=== PATIENT | male | born 1970 | race Caucasian/White ===

== ENCOUNTER 2018-11-07 14:41 | Inpatient (IN) | payer OTHER | END 2018-11-10 09:19 | disposition home or self-care (01) | LOC: YASAS 14:41 → Y3N 18:24 ==

== ENCOUNTER 2018-11-16 12:49 | Inpatient (IN) | payer OTHER ==
[2018-11-16 13:52] VITALS: BMI 26.6
--- NOTE | 2018-11-16 14:37 | HP ---
COWS - Scale Resting Pulse: 0= [place] 80 or Below Sweatin= Chills/Flushing Restless Observation: 1= Difficult to Sit Still Pupil Size: 0= Normal to Room Light Bone or Joint Aches: 1= Mild Discomfort Runny Nose/ Eye Tearin= Nasal Congestion GI Upset > 30mins: 2= Nausea/Diarrhea Tremor Observation: 4= Gross Tremor/Twitching Yawning Observation: 1= 1-2x During Session Anxiety or Irritability: 1=Feels Anxious/Irritable Goose Flesh Skin: 0=Smooth Skin COWS Score: 12 CIWA Score Nausea/Vomitin-Mild Nausea/No Vomiting Muscle Tremors: 3 Anxiety: 3 Agitation: 2 Paroxysmal Sweats: 1-Minimal Palms Moist Orientation: 0-Oriented Tacttile Disturbances: 1-Very Mild Itch/Numbness Auditory Disturbances: 0-None Visual Disturbances: 0-None Headache: 3-Moderate CIWA-Ar Total Score: 14 - Admission Criteria OASAS Guidelines: Admission for Medically Managed Detox: Requires at least one of the followin. CIWA greater than 12 2. Seizures within the past 24 hours 3. Delirium tremens within the past 24 hours 4. Hallucinations within the past 24 hours 5. Acute intervention needed for co occurring medical disorder 6. Acute intervention needed for co occurring psychiatric disorder 7. Severe withdrawal that cannot be handled at a lower level of care (continued vomiting, continued diarrhea, abnormal vital signs) requiring intravenous medication and/or fluids 8. Admission [facility] Chief Complaint: seeking detox from cocaine, heroin, and alcohol Allergies/Adverse Reactions: Allergies Allergy/AdvReac Type Severity Reaction Status Date / Time No Known Drug Allergies Allergy Verified 11/16/18 13:45 tuna fish Allergy Rash Uncoded 11/16/18 13:45 History of Present Illness: 48 y/o/m here seeking help for alcohol, cocaine, and heroin use. He was admitted here for detox on 11/07 and was discharged on 11/12. He states 2 days after discharge he was not feeling well and decided to start doing drugs again. He states that yesterday his student officer (Mr. Porter) in [place] directed him to go to a detox facility. He He was in [facility] from 2015 to April 2018 and is on parole for 2 more years. He drinks 2-3 6 packs of beer a day daily and starts drinking early in the mornings. He last had a drink this morning. He uses 2-3 grams of cocaine 4 times a week and last used it last night. He inhales the cocaine and denies any IV use. He uses 7-9 bags of Heroin daily and inhales it, denies any IV use. He last used Heroin this morning. 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 He states that yesterday was the first time that he has used marijuana in over 10 years. He admits to using xanax 3-4 times a month, just one pill at a time. He smokes a pack of cigarettes a day and would like the nicotine patch and gum while he is here. Patient states he would like to go through detox and stay for rehab. - Ebola screening Have you traveled outside of the country in the last 21 days: No Have you had contact with anyone from an Ebola affected area: No Do you have a fever: No - Review of Systems Constitutional: No Symptoms Reported EENT: reports: Nose Congestion, Throat Pain Respiratory: reports: No Symptoms reported Cardiac: reports: No Symptoms Reported GI: reports: Nausea, Abdominal cramping. denies: Constipated, Diarrhea, Vomiting : reports: No Symptoms Reported Musculoskeletal: reports: Back Pain Integumentary: reports: No Symptoms Reported Neuro: reports: Headache Endocrine: reports: No Symptoms Reported Hematology: reports: No Symptoms Reported Psychiatric: reports: Agitated, Anxious, Depressed Other Systems: Reviewed and Negative Patient History - Patient Medical History Hx Anemia: No (denies med hx) Hx Asthma: No Hx Chronic Obstructive Pulmonary Disease (COPD): No Hx Cancer: No Hx Cardiac Disorders: No Hx Congestive Heart Failure: No Hx Hypertension: No Hx Hypercholesterolemia: No Hx Pacemaker: No HX Cerebrovascular Accident: No Hx Seizures: No Hx Dementia: No Hx Diabetes: No Hx Gastrointestinal Disorders: No Hx Liver Disease: No Hx Genitourinary Disorders: No Hx Sexually Transmitted Disorders: No Hx Renal Disease (ESRD): No Hx Thyroid Disease: No Hx Human Immunodeficiency Virus (HIV): No Hx Hepatitis C: No Hx Depression: No Hx Suicide Attempt: No Hx Bipolar Disorder: No Hx Schizophrenia: No - Patient Surgical History Past Surgical History: No Hx Neurologic Surgery: No Hx Cataract Extraction: No Hx Cardiac Surgery: No Hx Lung Surgery: No Hx Breast Surgery: No Hx Breast Biopsy: No Hx Abdominal Surgery: No Hx Appendectomy: No Hx Cholecystectomy: No Hx Genitourinary Surgery: No Hx Section: No Hx Orthopedic Surgery: No Anesthesia Reaction: No - PPD History Previous Implant?: Yes Documented Results: Negative w/o proof Implanted On Prior [facility] Admission?: Yes Date: 11/09/18 - Smoking Cessation Smoking history: Current every day smoker Have you smoked in the past 12 months: Yes Aproximately how many cigarettes per day: 20 Hx Chewing Tobacco Use: Yes Initiated information on smoking cessation: Yes 'Breaking Loose' booklet given: 11/16/18 - Substances abused Alcohol Substance route: Oral Frequency: Daily Amount used: i bottle vodka Age of first use: 9 Date of last use: 11/16/18 Cocaine Substance route: Inhalation Frequency: 3-6 times per week Amount used: 4 bags/day Age of first use: 24 Date of last use: 11/16/18 Heroin Substance route: Inhalation Frequency: Daily Amount used: 7-8 bags Age of first use: 48 Date of last use: 11/07/18 Family Disease History - Family Disease History Family History: Denies Admission Physical Exam [facility] - Vital Signs Vital Signs: Vital Signs - 24 hr 11/16/18 13:45 Temperature 97.9 F Pulse Rate 64 Respiratory 17 Rate Blood Pressure 112/69 - Physical General Appearance: Yes: Disheveled HEENTM: Yes: EOMI, Normocephalic Respiratory: Yes: Lungs Clear, Normal Breath Sounds Neck: Yes: Supple Cardiology: Yes: Regular Rhythm, Regular Rate, S1, S2 Abdominal: Yes: Normal Bowel Sounds, Soft, Tenderness (mild tenderness to palpation in the epigastric region). 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, Fully Oriented, Alert, Motor Strength 5/5, Finger to Nose Integumentary: Yes: Dry Lymphatic: Yes: Within Normal Limits - Diagnostic (1) Alcohol use disorder Current Visit: No Status: Acute (2) Cocaine use disorder Current Visit: No Status: Acute (3) Opioid use disorder Current Visit: No Status: Acute (4) Tobacco use disorder Current Visit: No Status: Acute Cleared for Admission [facility] - Detox or Rehab [facility] Level of Care: Medically Managed Detox Regimen/Protocol: Methadone/Librium Breathalyzer - Breathalyzer Breathalyzer: 0 Urine Drug Screen - Test Device Lot number: [id number] Expiration date: 07/14/20 - Control Is test valid?: Yes - Results Drug screen NEGATIVE: No Urine drug screen results: THC-Marijuana, YANNICK-Cocaine, MOP-Opiates, BZO- Benzodiazepines Inpatient Rehab Admission - Rehab Decision to Admit Inpatient rehab admission?: No
[2018-11-16] MEDS ORDERED: cloNIDine HCL 0.1 MG TABLET PO PRN (14:56)
[2018-11-16] MEDS ORDERED: chlordiazePOXIDE HCL 25 MG CAPSULE PO PRN (14:56)
[2018-11-16] MEDS ORDERED: MENTHOL/PHENOL 1 EACH UD MM PRN (14:57)
[2018-11-16] MEDS ORDERED: IBUPROFEN 400 MG TABLET (FP) PO PRN (14:57)
[2018-11-16] MEDS ORDERED: BISMUTH SUBSALICYLATE 524 MG/30 ML UD PO PRN (14:57)
[2018-11-16] MEDS ORDERED: hydrOXYzine PAMOATE 25 MG CAPSULE (FP) PO PRN (14:57)
[2018-11-16] MEDS ORDERED: NICOTINE POLACRILEX 2 MG GUM BUC PRN (14:57)
[2018-11-16] MEDS ORDERED: METHOCARBAMOL 500 MG TABLET PO PRN (14:57)
[2018-11-16] MEDS ORDERED: MAG HYDROX/AL HYDROX/SIMETH 30 ML UNIT-DOSE CUP PO PRN (14:57)
[2018-11-16] MEDS ORDERED: ACETAMINOPHEN 325 MG TABLET (FP) PO PRN ×2 (14:57)
[2018-11-16] MEDS ORDERED: MAGNESIUM CITRATE 300 ML BOTTLE PO PRN (14:57)
[2018-11-16] MEDS ORDERED: MAGNESIUM HYDROX 2400MG/30ML ORAL SUSPENSION 30 ML CUP PO PRN (14:57)
--- NOTE | 2018-11-16 15:25 | PN ---
[facility] Progress Note Note: this 48 years old male with extensive history of heroin,alcohol,cocaine dependence seeking help i personally present,review,of history and examination of this patient by Dr.Harmanpree Brown, I agreed and concurred that this patient needed inpatient detox,Medically Managed,methadone and librium regimen
[2018-11-16] MEDS ORDERED: METHADONE HCL 10 MG TABLET (FOR DETOX USE ONLY) PO ONE (17:00)
[2018-11-16] MEDS: NICOTINE 21 MG/24 HOURS TOPICAL PATCH TD SCH (17:24)
[2018-11-16] MEDS: chlordiazePOXIDE HCL 25 MG CAPSULE PO SCH ×2 (17:24→22:15)
[2018-11-16 17:35] LABS: HEMATOCRIT 40.6 % (35.4-49); HEMOGLOBIN 13.4 GM/dL (11.7-16.9); MCH 31.3 pg (25.7-33.7); MCHC 33.1 g/dl (32.0-35.9); MEAN CELL VOLUME 94.5 fl (80-96); MEAN PLT VOLUME 11.1 fl (7.5-11.1); PLATELET COUNT 185 K/MM3 (134-434); RBC 4.29 M/mm3 (4.00-5.60); RDW 13.9 % (11.9-15.9); WHITE BLOOD COUNT 9.2 K/mm3 (4.0-10.0)
[2018-11-16 17:47] LABS: ALBUMIN 3.5 g/dl (3.4-5.0); BILIRUBIN,TOTAL 0.4 mg/dL (0.2-1); CALCIUM 9.1 mg/dL (8.5-10.1); CREATININE 1.1 mg/dL (0.55-1.3); POTASSIUM 4.1 mmol/L (3.5-5.1); TOT PROT 6.8 g/dl (6.4-8.2)
[2018-11-16] MEDS: THIAMINE HCL 100 MG TABLET (FP) PO SCH (22:15)
[2018-11-17] MEDS: chlordiazePOXIDE HCL 25 MG CAPSULE PO SCH ×4 (05:20→22:14)
[2018-11-17] MEDS ORDERED: METHADONE HCL 5 MG TABLET (FOR DETOX USE ONLY) ONE (08:55)
[2018-11-17] MEDS ORDERED: METHADONE HCL 10 MG TABLET (FOR DETOX USE ONLY) ONE (08:55)
[2018-11-17 09:38] LABS: URINE APPEARANCE CLOUDY; URINE BILIRUBIN NEGATIVE (NEGATIVE); URINE COLOR YELLOW; URINE GLUCOSE (UA) NEGATIVE (NEGATIVE); URINE KETONE NEGATIVE (NEGATIVE); URINE LEUK ESTERASE NEGATIVE (NEGATIVE); URINE NITRITE NEGATIVE (NEGATIVE); URINE PROTEIN NEGATIVE (NEGATIVE)
[2018-11-17] MEDS ORDERED: METHADONE (DETOX) 20 MG, METHADONE (DETOX) 5 MG PO ONE (10:00)
--- NOTE | 2018-11-17 10:26 | PN ---
S CIWA - CIWA Score Nausea/Vomitin-No Nausea/No Vomiting Muscle Tremors: 2 Anxiety: 2 Agitation: 2 Paroxysmal Sweats: 3 Orientation: 0-Oriented Tacttile Disturbances: 0-None Auditory Disturbances: 0-None Visual Disturbances: 0-None Headache: 2-Mild CIWA-Ar Total Score: 11 S COWS - Scale Resting Pulse: 0= [place] 80 or Below Sweatin= Chills/Flushing Restless Observation: 1= Difficult to Sit Still Pupil Size: 0= Normal to Room Light Bone or Joint Aches: 1= Mild Discomfort Runny Nose/ Eye Tearin= None GI Upset > 30mins: 0= None Tremor Observation of Outstretched Hands: 2= Slight Tremor Visible Yawning Observation: 1= 1-2x During Session Anxiety or Irritability: 2=Irritable/Anxious Goose Flesh Skin: 0=Smooth Skin COWS Score: 8 S Progress Note (SOAP) Subjective: c/o sweats, irritability, anxiety, and headache. Objective: 11/17/18 10:26 Vital Signs 11/17/18 11/17/18 11/17/18 03:30 06:00 09:25 Temperature 97.7 F 97.5 F L Pulse Rate 57 L 54 L Respiratory 18 18 16 Rate Blood Pressure 100/55 L 104/59 L Lab Results WBC 9.2 K/mm3 (4.0-10.0) 11/16/18 15:10 RBC 4.29 M/mm3 (4.00-5.60) 11/16/18 15:10 Hgb 13.4 GM/dL (11.7-16.9) 11/16/18 15:10 Hct 40.6 % (35.4-49) 11/16/18 15:10 MCV 94.5 fl (80-96) 11/16/18 15:10 MCHC 33.1 g/dl (32.0-35.9) 11/16/18 15:10 RDW 13.9 % (11.9-15.9) 11/16/18 15:10 Plt Count 185 K/MM3 (134-434) 11/16/18 15:10 Sodium 138 mmol/L (136-145) 11/16/18 15:10 Potassium 4.1 mmol/L (3.5-5.1) 11/16/18 15:10 Chloride 105 mmol/L (98-107) 11/16/18 15:10 Carbon Dioxide 27 mmol/L (21-32) 11/16/18 15:10 Anion Gap 7 MMOL/L (8-16) L 11/16/18 15:10 BUN 15.0 mg/dL (7-18) 11/16/18 15:10 Creatinine 1.1 mg/dL (0.55-1.3) 11/16/18 15:10 Random Glucose 129 mg/dL (74-106) H 11/16/18 15:10 Calcium 9.1 mg/dL (8.5-10.1) 11/16/18 15:10 Labs noted. Assessment: 11/17/18 10:26 AOX3, in no acute respiratory distress Full ROM, ambulating in the unit. withdrawal symptoms. Plan: continue detox.
[2018-11-17] MEDS: NICOTINE 21 MG/24 HOURS TOPICAL PATCH TD SCH (10:43)
[2018-11-17] MEDS: PRENATAL VITAMINS W/ FOLIC ACID TABLET (FP) PO SCH (10:47)
[2018-11-17] MEDS: MELATONIN 5 MG TABLETS PO PRN (22:14)
[2018-11-17] MEDS: THIAMINE HCL 100 MG TABLET (FP) PO SCH (22:14)
[2018-11-18] MEDS: chlordiazePOXIDE HCL 25 MG CAPSULE PO SCH ×4 (05:42→22:34)
[2018-11-18] MEDS ORDERED: METHADONE HCL 10 MG TABLET (FOR DETOX USE ONLY) PO ONE (10:00)
[2018-11-18] MEDS: PRENATAL VITAMINS W/ FOLIC ACID TABLET (FP) PO SCH (10:08)
[2018-11-18] MEDS: NICOTINE 21 MG/24 HOURS TOPICAL PATCH TD SCH (10:08)
--- NOTE | 2018-11-18 10:29 | PN ---
S CIWA - CIWA Score Nausea/Vomitin Muscle Tremors: 2 Anxiety: 2 Agitation: 1-Slight > Activity Paroxysmal Sweats: 3 Orientation: 0-Oriented Tacttile Disturbances: 1-Very Mild Itch/Numbness Auditory Disturbances: 0-None Visual Disturbances: 0-None Headache: 0-None Present CIWA-Ar Total Score: 11 BHS COWS - Scale Resting Pulse: 0= [place] 80 or Below Sweatin=Flushed/Facial Moisture Restless Observation: 1= Difficult to Sit Still Pupil Size: 1= Pupils >than Normal Bone or Joint Aches: 1= Mild Discomfort Runny Nose/ Eye Tearin= None GI Upset > 30mins: 1= Stomach Cramp Tremor Observation of Outstretched Hands: 2= Slight Tremor Visible Yawning Observation: 0= None Anxiety or Irritability: 1=Feels Anxious/Irritable Goose Flesh Skin: 0=Smooth Skin COWS Score: 9 S Progress Note (SOAP) Subjective: interrupted sleep, sweats, shakes, lbp, wants ensure Objective: 11/18/18 10:26 Vital Signs Temperature 98.2 F 11/18/18 06:38 Pulse Rate 63 11/18/18 06:38 Respiratory Rate 18 11/18/18 06:38 Blood Pressure 121/60 11/18/18 06:38 O2 Sat by Pulse Oximetry (%) Laboratory Tests 11/16/18 11/16/18 11/16/18 06:35 15:10 15:10 WBC 9.2 RBC 4.29 Hgb 13.4 Hct 40.6 MCV 94.5 MCH 31.3 MCHC 33.1 RDW 13.9 Plt Count 185 MPV 11.1 Sodium 138 Potassium 4.1 Chloride 105 Carbon Dioxide 27 Anion Gap 7 L BUN 15.0 Creatinine 1.1 Est GFR (CKD-EPI)AfAm 90.88 Est GFR (CKD-EPI)NonAf 78.41 Random Glucose 129 H Calcium 9.1 Total Bilirubin 0.4 AST 14 L ALT 20 Alkaline Phosphatase 91 Total Protein 6.8 Albumin 3.5 Urine Color Yellow Urine Appearance Cloudy Urine pH 8.0 D Ur Specific [place] 1.014 Urine Protein Negative Urine Glucose (UA) Negative Urine Ketones Negative Urine Blood Negative Urine Nitrite Negative Urine Bilirubin Negative Urine Urobilinogen 1.0 Ur Leukocyte Esterase Negative RPR Titer 11/16/18 15:10 WBC RBC Hgb Hct MCV MCH MCHC RDW Plt Count MPV Sodium Potassium Chloride Carbon Dioxide Anion Gap BUN Creatinine Est GFR (CKD-EPI)AfAm Est GFR (CKD-EPI)NonAf Random Glucose Calcium Total Bilirubin AST ALT Alkaline Phosphatase Total Protein Albumin Urine Color Urine Appearance Urine pH Ur Specific [place] Urine Protein Urine Glucose (UA) Urine Ketones Urine Blood Urine Nitrite Urine Bilirubin Urine Urobilinogen Ur Leukocyte Esterase RPR Titer Nonreactive pt lying in bed aox3 in nad mild tremor Assessment: 11/18/18 10:28 withdrawal sx's lbp h/o wt loss hyperglycemia-glucose 129 Plan: cont detox increase fluids motrin prn repeat glucose fating , [id number]
[2018-11-18] MEDS ORDERED: PANTOPRAZOLE 40 MG TABLET (FP) PO ONE (12:20)
[2018-11-18] MEDS: MELATONIN 5 MG TABLETS PO PRN (22:34)
[2018-11-18] MEDS: THIAMINE HCL 100 MG TABLET (FP) PO SCH (22:34)
[2018-11-19] MEDS ORDERED: chlordiazePOXIDE HCL 10 MG CAPSULE PO PRN
[2018-11-19] MEDS: chlordiazePOXIDE HCL 10 MG CAPSULE PO SCH ×4 (05:35→22:56)
[2018-11-19] MEDS ORDERED: METHADONE (DETOX) 10 MG, METHADONE (DETOX) 5 MG PO ONE (10:00)
[2018-11-19] MEDS ORDERED: METHADONE HCL 10 MG TABLET (FOR DETOX USE ONLY) ONE (10:12)
[2018-11-19] MEDS ORDERED: METHADONE HCL 5 MG TABLET (FOR DETOX USE ONLY) ONE (10:12)
[2018-11-19] MEDS: PRENATAL VITAMINS W/ FOLIC ACID TABLET (FP) PO SCH (10:32)
[2018-11-19] MEDS: PANTOPRAZOLE 40 MG TABLET (FP) PO SCH (10:32)
[2018-11-19] MEDS: NICOTINE 21 MG/24 HOURS TOPICAL PATCH TD SCH (10:32)
[2018-11-19 11:28] LABS: BLOOD UREA NITROGEN 11.3 mg/dL (7-18); CALCIUM 8.7 mg/dL (8.5-10.1); CREATININE 0.9 mg/dL (0.55-1.3); POTASSIUM 4.1 mmol/L (3.5-5.1)
--- NOTE | 2018-11-19 12:53 | PN ---
[facility] CIWA - CIWA Score Nausea/Vomitin-No Nausea/No Vomiting Muscle Tremors: 1-None Visible, but [place] Anxiety: 2 Agitation: 2 Paroxysmal Sweats: 3 Orientation: 0-Oriented Tacttile Disturbances: 0-None Auditory Disturbances: 0-None Visual Disturbances: 0-None Headache: 2-Mild CIWA-Ar Total Score: 10 BHS COWS - Scale Resting Pulse: 0= [place] 80 or Below Sweatin= Chills/Flushing Restless Observation: 1= Difficult to Sit Still Pupil Size: 0= Normal to Room Light Bone or Joint Aches: 1= Mild Discomfort Runny Nose/ Eye Tearin= None GI Upset > 30mins: 0= None Tremor Observation of Outstretched Hands: 1= Tremor [place], Not Seen Yawning Observation: 1= 1-2x During Session Anxiety or Irritability: 2=Irritable/Anxious Goose Flesh Skin: 0=Smooth Skin COWS Score: 7 S Progress Note (SOAP) Subjective: c/o back pain, headache, and sweats. Objective: 11/19/18 12:52 Vital Signs 11/19/18 11/19/18 07:54 09:34 Temperature 97.9 F 97.5 F L Pulse Rate 60 59 L Respiratory 18 18 Rate Blood Pressure 108/69 115/62 Lab Results WBC 9.2 K/mm3 (4.0-10.0) 11/16/18 15:10 RBC 4.29 M/mm3 (4.00-5.60) 11/16/18 15:10 Hgb 13.4 GM/dL (11.7-16.9) 11/16/18 15:10 Hct 40.6 % (35.4-49) 11/16/18 15:10 MCV 94.5 fl (80-96) 11/16/18 15:10 MCHC 33.1 g/dl (32.0-35.9) 11/16/18 15:10 RDW 13.9 % (11.9-15.9) 11/16/18 15:10 Plt Count 185 K/MM3 (134-434) 11/16/18 15:10 Sodium 142 mmol/L (136-145) 11/19/18 08:00 Potassium 4.1 mmol/L (3.5-5.1) 11/19/18 08:00 Chloride 110 mmol/L (98-107) H 11/19/18 08:00 Carbon Dioxide 29 mmol/L (21-32) 11/19/18 08:00 Anion Gap 4 MMOL/L (8-16) L 11/19/18 08:00 BUN 11.3 mg/dL (7-18) 11/19/18 08:00 Creatinine 0.9 mg/dL (0.55-1.3) 11/19/18 08:00 Random Glucose 94 mg/dL (74-106) 11/19/18 08:00 Calcium 8.7 mg/dL (8.5-10.1) 11/19/18 08:00 Labs noted. Assessment: 11/19/18 12:52 AOX3, in no respiratory distress Full ROM, ambulating in the unit. withdrawal signs 11/19/18 12:53 Plan: continue detox.
[2018-11-19] MEDS: THIAMINE HCL 100 MG TABLET (FP) PO SCH (22:56)
[2018-11-19] MEDS: MELATONIN 5 MG TABLETS PO PRN (22:56)
[2018-11-20] MEDS: chlordiazePOXIDE HCL 10 MG CAPSULE PO SCH ×2 (05:37→17:58)
[2018-11-20] MEDS: PRENATAL VITAMINS W/ FOLIC ACID TABLET (FP) PO SCH (09:59)
[2018-11-20] MEDS: NICOTINE 21 MG/24 HOURS TOPICAL PATCH TD SCH (10:00)
[2018-11-20] MEDS: PANTOPRAZOLE 40 MG TABLET (FP) PO SCH (10:00)
[2018-11-20] MEDS ORDERED: METHADONE HCL 10 MG TABLET (FOR DETOX USE ONLY) PO ONE (10:00)
--- NOTE | 2018-11-20 16:09 | PN ---
[facility] CIWA - CIWA Score Nausea/Vomitin-No Nausea/No Vomiting Muscle Tremors: None Anxiety: 0-No Anxiety, at Ease Agitation: 1-Slight > Activity Paroxysmal Sweats: No Perspiration Orientation: 0-Oriented Tacttile Disturbances: 0-None Auditory Disturbances: 0-None Visual Disturbances: 0-None Headache: 0-None Present CIWA-Ar Total Score: 1 S COWS - Scale Resting Pulse: 0= [place] 80 or Below Sweatin= No chills or Flushing Restless Observation: 1= Difficult to Sit Still Pupil Size: 0= Normal to Room Light Bone or Joint Aches: 0= None Runny Nose/ Eye Tearin= None GI Upset > 30mins: 0= None Tremor Observation of Outstretched Hands: 0= None Yawning Observation: 1= 1-2x During Session Anxiety or Irritability: 0= None Goose Flesh Skin: 0=Smooth Skin COWS Score: 2 S Progress Note (SOAP) Subjective: Patient denies current Withdrawal / Detox symptoms and reports that he feels well overall at this time. Objective: PATIENT A & O X 3, OBSERVED AMBULATING ON UNIT UNASSISTED. IN NO ACUTE DISTRESS. 11/20/18 16:08 Vital Signs Temperature 97.5 F L 11/20/18 13:20 Pulse Rate 62 11/20/18 13:20 Respiratory Rate 18 11/20/18 13:20 Blood Pressure 122/64 11/20/18 13:20 O2 Sat by Pulse Oximetry (%) Laboratory Tests 11/16/18 11/16/18 11/16/18 06:35 15:10 15:10 WBC 9.2 RBC 4.29 Hgb 13.4 Hct 40.6 MCV 94.5 MCH 31.3 MCHC 33.1 RDW 13.9 Plt Count 185 MPV 11.1 Sodium 138 Potassium 4.1 Chloride 105 Carbon Dioxide 27 Anion Gap 7 L BUN 15.0 Creatinine 1.1 Est GFR (CKD-EPI)AfAm 90.88 Est GFR (CKD-EPI)NonAf 78.41 Random Glucose 129 H Hemoglobin A1c % Calcium 9.1 Total Bilirubin 0.4 AST 14 L ALT 20 Alkaline Phosphatase 91 Total Protein 6.8 Albumin 3.5 Urine Color Yellow Urine Appearance Cloudy Urine pH 8.0 D Ur Specific [place] 1.014 Urine Protein Negative Urine Glucose (UA) Negative Urine Ketones Negative Urine Blood Negative Urine Nitrite Negative Urine Bilirubin Negative Urine Urobilinogen 1.0 Ur Leukocyte Esterase Negative RPR Titer 11/16/18 11/19/18 11/19/18 15:10 08:00 08:00 WBC RBC Hgb Hct MCV MCH MCHC RDW Plt Count MPV Sodium 142 Potassium 4.1 Chloride 110 H Carbon Dioxide 29 Anion Gap 4 L BUN 11.3 Creatinine 0.9 Est GFR (CKD-EPI)AfAm 115.83 Est GFR (CKD-EPI)NonAf 99.94 Random Glucose 94 Hemoglobin A1c % 6.3 Calcium 8.7 Total Bilirubin AST ALT Alkaline Phosphatase Total Protein Albumin Urine Color Urine Appearance Urine pH Ur Specific [place] Urine Protein Urine Glucose (UA) Urine Ketones Urine Blood Urine Nitrite Urine Bilirubin Urine Urobilinogen Ur Leukocyte Esterase RPR Titer Nonreactive LABS NOTED. Assessment: 11/20/18 16:08 WITHDRAWAL SYMPTOMS. Plan: CONTINUE DETOX. PATIENT SCHEDULED FOR DISCHARGE FROM DETOX UNIT TOMORROW.
[2018-11-20] MEDS: THIAMINE HCL 100 MG TABLET (FP) PO SCH (22:28)
[2018-11-21] MEDS ORDERED: chlordiazePOXIDE HCL 10 MG CAPSULE PO ONE (05:00)
[2018-11-21] MEDS ORDERED: METHADONE HCL 5 MG TABLET (FOR DETOX USE ONLY) PO ONE (06:00)
[2018-11-21 07:57] VITALS: BP 123/66; PULSE 60; TEMP 97.9
--- NOTE | 2018-11-21 08:53 | DS ---
[facility] Detox Discharge Summary Admission Date: 11/16/18 Discharge Date: 11/21/18 - History Present History: Alcohol Dependence, Cocaine Dependence, Opioid Dependence - Physical Exam Results Vital Signs: Vital Signs Temperature 97.9 F 11/21/18 07:57 Pulse Rate 60 11/21/18 07:57 Respiratory Rate 18 11/21/18 07:57 Blood Pressure 123/66 11/21/18 07:57 O2 Sat by Pulse Oximetry (%) - Treatment Hospital Course: Detox Protocol Followed, Detoxed Safely, Responded well, Discharged Condition Good, Rehab Referral Accepted - Medication Discharge Medications: Ambulatory Orders Naloxone HCl [Narcan] 4 mg NS ASDIR #1 kit 11/10/18 - Diagnosis (1) Alcohol use disorder Current Visit: Yes Status: Acute (2) Cocaine use disorder Current Visit: Yes Status: Acute (3) Opioid use disorder Current Visit: Yes Status: Acute (4) Tobacco use disorder Current Visit: Yes Status: Acute - AMA Did Patient Leave Against Medical Advice: No ([facility])
== END 2018-11-21 09:12 | disposition home or self-care (01) | DRG 773 ==
LOC: YASAS 12:49 → Y6N 15:35
PROVIDERS: ADMIT Surgery; ATTEND Surgery
PROC: HZ2ZZZZ Detoxification Services for Substance Abuse Treatment (ICD-10-PCS; principal; 2018-11-16)
DX: F11.23 Opioid dependence with withdrawal (principal); F10.230 Alcohol dependence with withdrawal, uncomplicated; F14.20 Cocaine dependence, uncomplicated; F17.210 Nicotine dependence, cigarettes, uncomplicated
CPT/HCPCS: 36415; 80048; 80053; 81003; 83036; 85027; 86593

== ENCOUNTER 2018-11-23 11:30 | Inpatient (IN) | payer OTHER ==
[2018-11-23 15:08] VITALS: BMI 28.5
--- NOTE | 2018-11-23 17:44 | HP ---
CIWA Score - Admission Criteria OASAS Guidelines: Admission for Medically Managed Detox: Requires at least one of the followin. CIWA greater than 12 2. Seizures within the past 24 hours 3. Delirium tremens within the past 24 hours 4. Hallucinations within the past 24 hours 5. Acute intervention needed for co occurring medical disorder 6. Acute intervention needed for co occurring psychiatric disorder 7. Severe withdrawal that cannot be handled at a lower level of care (continued vomiting, continued diarrhea, abnormal vital signs) requiring intravenous medication and/or fluids 8. Admission ROS [facility] Chief Complaint: seeking help for cocaine use Allergies/Adverse Reactions: Allergies Allergy/AdvReac Type Severity Reaction Status Date / Time No Known Drug Allergies Allergy Verified 11/23/18 15:01 tuna oil Allergy Rash Verified 11/23/18 15:01 tuna fish Allergy Rash Uncoded 11/23/18 15:01 History of Present Illness: 48 y/o/m here seeking help for cocaine use. He was admitted here for detox from 11/16-11/21 and did not stay for rehab. He states he received paperwork after finishing detox and was confused and thought he was cleared to leave. He states he only did one dimebag of cocaine yesterday which he used by inhaling. He used $10 worth of heroin 2 days ago which he used by inhaling. He denies any IV use. He states he only had one small bottle of vodka since he left detox. He smoked 1 pack of cigarettes since being discharged from rehab. He used 2 pills of Seroquel last night because he had trouble sleeping, he got the Seroquel from a friend. He denies any other illicit substance use. He would like to stay for rehab now. - Ebola screening Have you traveled outside of the country in the last 21 days: No (N) Have you had contact with anyone from an Ebola affected area: No Do you have a fever: No - Review of Systems Constitutional: No Symptoms Reported EENT: reports: No Symptoms Reported Respiratory: reports: No Symptoms reported Cardiac: reports: No Symptoms Reported GI: reports: No Symptoms Reported : reports: No Symptoms Reported Musculoskeletal: reports: Back Pain (chronic) Integumentary: reports: No Symptoms Reported Neuro: reports: No Symptoms reported Endocrine: reports: No Symptoms Reported Hematology: reports: No Symptoms Reported Psychiatric: reports: No Sypmtoms Reported Other Systems: Reviewed and Negative Patient History - Patient Medical History Hx Anemia: No (denies med hx) Hx Asthma: No Hx Chronic Obstructive Pulmonary Disease (COPD): No Hx Cancer: No Hx Cardiac Disorders: No Hx Congestive Heart Failure: No Hx Hypertension: No Hx Hypercholesterolemia: No Hx Pacemaker: No HX Cerebrovascular Accident: No Hx Seizures: No Hx Dementia: No Hx Diabetes: No Hx Gastrointestinal Disorders: No Hx Liver Disease: No Hx Genitourinary Disorders: No Hx Sexually Transmitted Disorders: No Hx Renal Disease (ESRD): No Hx Thyroid Disease: No Hx Human Immunodeficiency Virus (HIV): No Hx Hepatitis C: No Hx Depression: No Hx Suicide Attempt: No Hx Bipolar Disorder: No Hx Schizophrenia: No - Patient Surgical History Past Surgical History: No Hx Neurologic Surgery: No Hx Cataract Extraction: No Hx Cardiac Surgery: No Hx Lung Surgery: No Hx Breast Surgery: No Hx Breast Biopsy: No Hx Abdominal Surgery: No Hx Appendectomy: No Hx Cholecystectomy: No Hx Genitourinary Surgery: No Hx Section: No Hx Orthopedic Surgery: No Anesthesia Reaction: No - PPD History Previous Implant?: Yes Documented Results: Negative w/o proof Implanted On Prior R Admission?: Yes Date: 11/09/18 PPD to be Administered?: No - Smoking Cessation Smoking history: Current every day smoker Have you smoked in the past 12 months: Yes Aproximately how many cigarettes per day: 20 Hx Chewing Tobacco Use: Yes Initiated information on smoking cessation: Yes 'Breaking Loose' booklet given: 11/23/18 - Substance & Tx. History Hx Alcohol Use: Yes Hx Substance Use: Yes Substance Use Type: Alcohol, Cocaine, Heroin - Substances abused Alcohol Substance route: Oral Frequency: Daily Amount used: 1 bottle vodka Age of first use: 9 Date of last use: 11/22/18 Cocaine Substance route: Inhalation Frequency: Daily Amount used: 1-2gm Age of first use: 20 Date of last use: 11/22/18 Heroin Substance route: Inhalation Frequency: Daily Amount used: 7-8 bags Age of first use: 48 Date of last use: 11/14/18 Family Disease History - Family Disease History Family History: Denies Admission Physical Exam [facility] - Vital Signs Vital Signs: Vital Signs - 24 hr 11/23/18 14:56 Temperature 98.0 F Pulse Rate 98 H Respiratory 18 Rate Blood Pressure 138/83 - Physical General Appearance: Yes: No Apparent Distress. No: Intoxicated, Tremorous, Irritable, Sweating HEENTM: Yes: EOMI, Normocephalic Respiratory: Yes: Lungs Clear, Normal Breath Sounds Neck: Yes: Supple Cardiology: Yes: Regular Rhythm, Regular Rate, S1, S2 Abdominal: Yes: Normal Bowel Sounds, Soft. No: Guarding, Rebound Extremities: Yes: Normal Capillary Refill Neurological: Yes: Fully Oriented, Alert, Motor Strength 5/5 Integumentary: Yes: Dry - Diagnostic (1) Alcohol use disorder Current Visit: No Status: Chronic (2) Cocaine use disorder Current Visit: No Status: Chronic (3) Opioid use disorder Current Visit: No Status: Chronic (4) Tobacco use disorder Current Visit: No Status: Chronic Cleared for Admission S - Detox or Rehab [facility] Level of Care: Medically Managed Claeared for Rehab Admission: Yes Breathalyzer - Breathalyzer Breathalyzer: 0 Urine Drug Screen - Test Device Lot number: [id number] Expiration date: 09/13/20 - Control Is test valid?: Yes - Results Drug screen NEGATIVE: No Urine drug screen results: YANNICK-Cocaine, MTD-Methadone, BZO-Benzodiazepines Inpatient Rehab Admission - Rehab Decision to Admit Inpatient rehab admission?: Yes - Initial Determination Are CD services needed?: Yes Free of communicable disease: Yes Not in need of hospitalization: Yes - Rehab Admission Criteria Previous failed treatment: Yes Poor recovery environment: Yes Comorbidities: Yes Lacks judgement: Yes Patient is meeting Inpatient Rehab admission criteria:: Yes
[2018-11-23] MEDS ORDERED: MAGNESIUM CITRATE 300 ML BOTTLE PO PRN (18:14)
[2018-11-23] MEDS ORDERED: guaiFENesin 200 MG/10 ML 10 ML UNIT-DOSE CUPS PO PRN (18:14)
[2018-11-23] MEDS ORDERED: IBUPROFEN 400 MG TABLET (FP) PO PRN (18:14)
[2018-11-23] MEDS ORDERED: ACETAMINOPHEN 325 MG TABLET (FP) PO PRN (18:14)
[2018-11-23] MEDS ORDERED: MAGNESIUM HYDROX 2400MG/30ML ORAL SUSPENSION 30 ML CUP PO PRN (18:14)
[2018-11-23] MEDS ORDERED: MENTHOL/PHENOL 1 EACH UD MM PRN (18:14)
[2018-11-23] MEDS ORDERED: P-EPHED 60MG/TRIPROLIDI 2.5MG TABLET PO PRN (18:14)
--- NOTE | 2018-11-23 19:07 | PN ---
Teaching Attending Note Name of Resident: Tiana Bernabe ATTENDING PHYSICIAN STATEMENT I saw and evaluated the patient. I reviewed the resident's note and discussed the case with the resident. I agree with the resident's findings and plan as documented. SUBJECTIVE: pt completed detox a couple of days ago- here for rehab- h/o alcohol , cocaine and heroin use OBJECTIVE: Vital Signs - 24 hr 11/23/18 14:56 Temperature 98.0 F Pulse Rate 98 H Respiratory 18 Rate Blood Pressure 138/83 alert and oriented ASSESSMENT AND PLAN: pt admitted for rehab from alcohol/cocaine and heroin use- pt completed detox.
[2018-11-23] MEDS: NICOTINE 14 MG/24 HOURS TOPICAL PATCH TD SCH (20:01)
[2018-11-23] MEDS: THIAMINE HCL 100 MG TABLET (FP) PO SCH (21:18)
[2018-11-23] MEDS: MELATONIN 5 MG TABLETS PO PRN (21:18)
[2018-11-24 06:22] LABS: URINE APPEARANCE CLEAR; URINE BILIRUBIN NEGATIVE (NEGATIVE); URINE COLOR DK YELLOW; URINE GLUCOSE (UA) NEGATIVE (NEGATIVE); URINE KETONE TRACE (NEGATIVE); URINE LEUK ESTERASE NEGATIVE (NEGATIVE); URINE NITRITE NEGATIVE (NEGATIVE); URINE PROTEIN NEGATIVE (NEGATIVE)
[2018-11-24] MEDS: NICOTINE 14 MG/24 HOURS TOPICAL PATCH TD SCH (10:01)
[2018-11-24] MEDS: PRENATAL VITAMINS W/ FOLIC ACID TABLET (FP) PO SCH (10:01)
[2018-11-24] MEDS: MELATONIN 5 MG TABLETS PO PRN (21:10)
[2018-11-24] MEDS: THIAMINE HCL 100 MG TABLET (FP) PO SCH (21:10)
[2018-11-25] MEDS: NICOTINE 14 MG/24 HOURS TOPICAL PATCH TD SCH (09:49)
[2018-11-25] MEDS: PRENATAL VITAMINS W/ FOLIC ACID TABLET (FP) PO SCH (09:49)
[2018-11-25] MEDS: MAG HYDROX/AL HYDROX/SIMETH 30 ML UNIT-DOSE CUP PO PRN ×2 (13:59→21:50)
[2018-11-25] MEDS: MELATONIN 5 MG TABLETS PO PRN (21:36)
[2018-11-25] MEDS: THIAMINE HCL 100 MG TABLET (FP) PO SCH (21:36)
[2018-11-26] MEDS: PRENATAL VITAMINS W/ FOLIC ACID TABLET (FP) PO SCH (09:59)
[2018-11-26] MEDS: NICOTINE 14 MG/24 HOURS TOPICAL PATCH TD SCH (09:59)
[2018-11-26] MEDS: LOPERAMIDE HCL 2 MG CAPSULE PO PRN (12:06)
[2018-11-26] MEDS: MELATONIN 5 MG TABLETS PO PRN (21:56)
[2018-11-26] MEDS: THIAMINE HCL 100 MG TABLET (FP) PO SCH (21:56)
[2018-11-26] MEDS: MAG HYDROX/AL HYDROX/SIMETH 30 ML UNIT-DOSE CUP PO PRN (21:57)
[2018-11-27] MEDS: PRENATAL VITAMINS W/ FOLIC ACID TABLET (FP) PO SCH (10:01)
[2018-11-27] MEDS: NICOTINE 14 MG/24 HOURS TOPICAL PATCH TD SCH (10:01)
[2018-11-27] MEDS: MAG HYDROX/AL HYDROX/SIMETH 30 ML UNIT-DOSE CUP PO PRN (15:19)
[2018-11-27] MEDS: LOPERAMIDE HCL 2 MG CAPSULE PO PRN (21:01)
[2018-11-27] MEDS: MELATONIN 5 MG TABLETS PO PRN (21:01)
[2018-11-27] MEDS: hydrOXYzine PAMOATE 50 MG CAPSULE (FP) PO PRN (21:01)
[2018-11-27] MEDS: THIAMINE HCL 100 MG TABLET (FP) PO SCH (21:01)
[2018-11-28] MEDS: NICOTINE 14 MG/24 HOURS TOPICAL PATCH TD SCH (09:41)
[2018-11-28] MEDS: PRENATAL VITAMINS W/ FOLIC ACID TABLET (FP) PO SCH (09:42)
[2018-11-28] MEDS: LOPERAMIDE HCL 2 MG CAPSULE PO PRN ×2 (09:43→21:13)
[2018-11-28] MEDS: MELATONIN 5 MG TABLETS PO PRN (21:12)
[2018-11-28] MEDS: THIAMINE HCL 100 MG TABLET (FP) PO SCH (21:12)
[2018-11-29] MEDS: NICOTINE 14 MG/24 HOURS TOPICAL PATCH TD SCH (09:46)
[2018-11-29] MEDS: PRENATAL VITAMINS W/ FOLIC ACID TABLET (FP) PO SCH (09:46)
[2018-11-29] MEDS: LOPERAMIDE HCL 2 MG CAPSULE PO PRN ×2 (11:44→18:38)
[2018-11-29] MEDS: MELATONIN 5 MG TABLETS PO PRN (21:12)
[2018-11-29] MEDS: THIAMINE HCL 100 MG TABLET (FP) PO SCH (21:12)
[2018-11-29] MEDS: hydrOXYzine PAMOATE 50 MG CAPSULE (FP) PO PRN (21:13)
[2018-11-30] MEDS: PRENATAL VITAMINS W/ FOLIC ACID TABLET (FP) PO SCH (09:52)
[2018-11-30] MEDS: NICOTINE 14 MG/24 HOURS TOPICAL PATCH TD SCH (09:52)
[2018-11-30] MEDS: hydrOXYzine PAMOATE 50 MG CAPSULE (FP) PO PRN ×2 (15:49→21:11)
[2018-11-30] MEDS: MELATONIN 5 MG TABLETS PO PRN (21:11)
[2018-11-30] MEDS: THIAMINE HCL 100 MG TABLET (FP) PO SCH (21:11)
[2018-12-01] MEDS: PRENATAL VITAMINS W/ FOLIC ACID TABLET (FP) PO SCH (10:01)
[2018-12-01] MEDS: NICOTINE 14 MG/24 HOURS TOPICAL PATCH TD SCH (10:01)
[2018-12-01] MEDS: hydrOXYzine PAMOATE 50 MG CAPSULE (FP) PO PRN (10:02)
--- NOTE | 2018-12-01 12:30 | CONSULT ---
[facility] Psychiatric Consult - Data Date of interview: 12/01/18 Admission source: [facility] Identifying data: Patient is a 48 year old single male, father of one, unemployed, domiciled, and is supported by welfare. This is patient's first admission to rehab at [facility]. Patient admitted to for alcohol, cocaine, and opiate dependence. Substance Abuse History: Smoking Cessation. Smoking history: Current every day smoker. Have you smoked in the past 12 months: Yes. Aproximately how many cigarettes per day: 20. Hx Chewing Tobacco Use: Yes. Initiated information on smoking cessation: Yes. 'Breaking Loose' booklet given: 11/23/18. - Substance & Tx. History. Hx Alcohol Use: Yes. Hx Substance Use: Yes. Substance Use Type : Alcohol, Cocaine, Heroin. - Substances abused. Alcohol. Substance route : Oral. Frequency: Daily. Amount used: 1 bottle vodka. Age of first use: 9. Date of last use: 11/22/18. Cocaine. Substance route: Inhalation. Frequency: Daily. Amount used: 1-2gm. Age of first use: 20. Date of last use : 11/22/18. Heroin. Substance route: Inhalation. Frequency: Daily. Amount used: 7-8 bags. Age of first use: 48. Date of last use: 11/14/18 Medical History: denies. endorses good health. Psychiatric History: Patient denies h/o psychiatric hospitalization and suicide attempt. Patient's first psychiatric contact was while incarcerated in 2018. He reports being prescribed psychotropic medications but is unable to recall the name of the medication. States he has taken seroquel in the past. At present, patient reports stable mood but is experiencing difficulty sleeping and ongoing anxiety which is unresolved by vistaril. Physical/Sexual Abuse/Trauma History: Reports emotional truama from witnessing his mothers . Refuses to elaborate as patient states it makes him emotional. Mental Status Exam - Mental Status Exam Alert and Oriented to: Time, Place, Person Cognitive Function: Good Patient Appearance: Well Groomed Mood: Euthymic Affect: Mood Congruent Patient Behavior: Appropriate, Cooperative Speech Pattern: Appropriate Voice Loudness: Normal Thought Process: Goal Oriented Thought Disorder: Not Present Hallucinations: Denies Suicidal Ideation: Denies Homicidal Ideation: Denies Insight/Judgement: Poor Sleep: Poorly Appetite: Fair Muscle strength/Tone: Normal Gait/Station: Normal Psychiatric Findings - Problem List ([place] 1, 2,3) (1) Alcohol use disorder Current Visit: Yes Status: Chronic (2) Cocaine use disorder Current Visit: Yes Status: Chronic (3) Opioid use disorder Current Visit: Yes Status: Chronic (4) Substance-induced sleep disorder Current Visit: Yes Status: Acute (5) Substance-induced anxiety disorder Current Visit: Yes Status: Acute - Initial Treatment Plan Initial Treatment Plan: Psychoeducation provided. Rehab in progress. Will order gabapentin 300mg BID PRN + Seroquel 50mg HS. Benefits and side effects discussed. Verbal consent given.
[2018-12-01] MEDS: MELATONIN 5 MG TABLETS PO PRN (21:16)
[2018-12-01] MEDS: THIAMINE HCL 100 MG TABLET (FP) PO SCH (21:16)
[2018-12-01] MEDS: QUEtiapine FUMARATE 50 MG TABLET PO SCH (21:17)
[2018-12-01] MEDS: GABAPENTIN 300 MG CAPSULE (FP) PO PRN (21:34)
[2018-12-02] MEDS: PRENATAL VITAMINS W/ FOLIC ACID TABLET (FP) PO SCH (09:51)
[2018-12-02] MEDS: NICOTINE 14 MG/24 HOURS TOPICAL PATCH TD SCH (09:53)
[2018-12-02] MEDS: GABAPENTIN 300 MG CAPSULE (FP) PO PRN ×2 (09:53→21:04)
[2018-12-02] MEDS: QUEtiapine FUMARATE 50 MG TABLET PO SCH (21:04)
[2018-12-02] MEDS: THIAMINE HCL 100 MG TABLET (FP) PO SCH (21:04)
[2018-12-02] MEDS: MELATONIN 5 MG TABLETS PO PRN (21:04)
[2018-12-03] MEDS: PRENATAL VITAMINS W/ FOLIC ACID TABLET (FP) PO SCH (09:33)
[2018-12-03] MEDS: NICOTINE 14 MG/24 HOURS TOPICAL PATCH TD SCH (09:33)
[2018-12-03] MEDS: GABAPENTIN 300 MG CAPSULE (FP) PO PRN ×2 (09:34→21:04)
[2018-12-03] MEDS: THIAMINE HCL 100 MG TABLET (FP) PO SCH (21:03)
[2018-12-03] MEDS: MELATONIN 5 MG TABLETS PO PRN (21:04)
[2018-12-03] MEDS: QUEtiapine FUMARATE 50 MG TABLET PO SCH (21:04)
[2018-12-04] MEDS: PRENATAL VITAMINS W/ FOLIC ACID TABLET (FP) PO SCH (09:51)
[2018-12-04] MEDS: NICOTINE 14 MG/24 HOURS TOPICAL PATCH TD SCH (09:51)
[2018-12-04] MEDS: GABAPENTIN 300 MG CAPSULE (FP) PO PRN ×2 (09:52→21:07)
[2018-12-04] MEDS: QUEtiapine FUMARATE 50 MG TABLET PO SCH (21:06)
[2018-12-04] MEDS: THIAMINE HCL 100 MG TABLET (FP) PO SCH (21:07)
[2018-12-04] MEDS: MELATONIN 5 MG TABLETS PO PRN (21:07)
[2018-12-05] MEDS: NICOTINE 14 MG/24 HOURS TOPICAL PATCH TD SCH (09:38)
[2018-12-05] MEDS: PRENATAL VITAMINS W/ FOLIC ACID TABLET (FP) PO SCH (09:39)
[2018-12-05] MEDS: GABAPENTIN 300 MG CAPSULE (FP) PO PRN ×2 (09:40→21:07)
[2018-12-05] MEDS: QUEtiapine FUMARATE 50 MG TABLET PO SCH (21:05)
[2018-12-05] MEDS: THIAMINE HCL 100 MG TABLET (FP) PO SCH (21:06)
[2018-12-05] MEDS: MELATONIN 5 MG TABLETS PO PRN (21:06)
[2018-12-06] MEDS: PRENATAL VITAMINS W/ FOLIC ACID TABLET (FP) PO SCH (09:54)
[2018-12-06] MEDS: NICOTINE 14 MG/24 HOURS TOPICAL PATCH TD SCH (09:54)
[2018-12-06] MEDS: GABAPENTIN 300 MG CAPSULE (FP) PO PRN ×2 (09:55→21:06)
--- NOTE | 2018-12-06 14:47 | PN ---
[facility] Progress Note Note: Patient is scheduled for discharge tomorrow. Scripts for 30 days supply of medications(gabapentin 300 mgbid, Seroquel 50 mg/hs) will be electronically transmitted to [facility] at [address] [place], [place] [id number]
--- NOTE | 2018-12-06 15:47 | PN ---
[facility] Progress Note (SOAP) Subjective: PT IS SCHEDULED TO BE DISCHARGED TOMORROW. PT ATTENDED AND PARTICIPATED IN GROUPS/INDIVIDUAL THERAPIES WHILE IN REHAB. PT MET WITH HIS COUNSELOR, MS DAYNAJOSEGALENAidee BENITEZ AND PT HAS BEEN REFERRED TO [facility] ON [address] [place] [address] FOR CD AFTERCARE. PT REPORTS HE HAS A PRIMARY CARE PROVIDER ON [place], [place]. DENIES S/H/I. Objective: 12/06/18 15:55 Vital Signs - 24 hr 12/06/18 12/06/18 12/06/18 00:30 03:30 07:01 Temperature 98.2 F Pulse Rate 75 Respiratory 18 18 16 Rate Blood Pressure 133/77 Laboratory Tests 11/23/18 11/26/18 11/27/18 21:38 07:23 06:34 POC Glucometer 98 104 Urine Color Dk yellow Urine Appearance Clear Urine pH 6.0 D Ur Specific [place] 1.025 Urine Protein Negative Urine Glucose (UA) Negative Urine Ketones Trace H Urine Blood Negative Urine Nitrite Negative Urine Bilirubin Negative Urine Urobilinogen 1.0 Ur Leukocyte Esterase Negative 11/28/18 11/29/18 11/30/18 06:42 06:56 06:31 POC Glucometer 88 100 87 Urine Color Urine Appearance Urine pH Ur Specific [place] Urine Protein Urine Glucose (UA) Urine Ketones Urine Blood Urine Nitrite Urine Bilirubin Urine Urobilinogen Ur Leukocyte Esterase 12/01/18 12/02/18 12/03/18 07:41 07:28 07:06 POC Glucometer 91 101 90 Urine Color Urine Appearance Urine pH Ur Specific [place] Urine Protein Urine Glucose (UA) Urine Ketones Urine Blood Urine Nitrite Urine Bilirubin Urine Urobilinogen Ur Leukocyte Esterase 12/04/18 12/05/18 12/06/18 06:51 06:29 06:41 POC Glucometer 90 115 86 Urine Color Urine Appearance Urine pH Ur Specific [place] Urine Protein Urine Glucose (UA) Urine Ketones Urine Blood Urine Nitrite Urine Bilirubin Urine Urobilinogen Ur Leukocyte Esterase Home Medications Medication Instructions Recorded Gabapentin [Neurontin -] 300 mg PO BID PRN #60 capsule 12/06/18 Gabapentin [Neurontin] 300 mg PO BID 12/06/18 Quetiapine Fumarate [Seroquel -] 50 mg PO HS 12/06/18 Quetiapine Fumarate [Seroquel -] 50 mg PO HS #30 tablet 12/06/18 Assessment: 12/06/18 15:57 NAD MEDICALLY STABLE Plan: SEPTEMBER D/C TOMORROW FOLLOW UP WITH CD AFTERCARE RECOMMENDATION FOLLOW UO WITH PRIMARY CARE PROVIDER WITHIN 1-2 WEEKS AFTER DISCHARGE.
[2018-12-06] MEDS: QUEtiapine FUMARATE 50 MG TABLET PO SCH (21:05)
[2018-12-06] MEDS: MELATONIN 5 MG TABLETS PO PRN (21:05)
[2018-12-06] MEDS: THIAMINE HCL 100 MG TABLET (FP) PO SCH (21:05)
[2018-12-07 06:37] VITALS: BP 121/72; PULSE 76; TEMP 97.7
[2018-12-07] MEDS: PRENATAL VITAMINS W/ FOLIC ACID TABLET (FP) PO SCH (09:01)
[2018-12-07] MEDS: NICOTINE 14 MG/24 HOURS TOPICAL PATCH TD SCH (09:01)
[2018-12-07] MEDS: GABAPENTIN 300 MG CAPSULE (FP) PO PRN (09:01)
--- NOTE | 2018-12-07 12:05 | PN ---
[facility] Progress Note Note: PT DISCHARGED TODAY SCHEDULED. ADMITTED ON AND DISCHARGED ON 12/07/18. ATTENDED AND PARTICIPATED IN GROUPS/INDIVIDUAL ACTIVITIES. REFERRED TO [facility] FOR CD AFTERCARE. DENIES S/H/I. Vital Signs - 24 hr 12/07/18 12/07/18 12/07/18 00:30 03:30 06:37 Temperature 97.7 F Pulse Rate 76 Respiratory 18 18 16 Rate Blood Pressure 121/72 ALERT O X 3. CARDIAC: S1 S2; RRR, NO MM/R. LUNG:CTA, FARHAD. ABDOMEN:SOFT,+BS; FLAT, NT/ND EXTREMITIES:NO E/C/C AMBULATING WITH STEADY GAIT. Home Medications Medication Instructions Recorded Gabapentin [Neurontin -] 300 mg PO BID PRN #60 capsule 12/06/18 Gabapentin [Neurontin] 300 mg PO BID 12/06/18 Quetiapine Fumarate [Seroquel -] 50 mg PO HS 12/06/18 Quetiapine Fumarate [Seroquel -] 50 mg PO HS #30 tablet 12/06/18 A:NAD MEDICALLY STABLE. PLAN:FOLLOW UP WITH CD AFTERCARE RECOMMENDATION FOLLOW UP WITH YOUR PRIMARY CARE AT [place], [place] WITHIN 1-2 WEEKS AFTER DISCHARGE. [facility] Inpatient Services Medical - Diagnosis (1) Alcohol use disorder Current Visit: Yes Status: Chronic (2) Cocaine use disorder Current Visit: Yes Status: Chronic (3) Opioid use disorder Current Visit: Yes Status: Chronic (4) Tobacco use disorder Current Visit: No Status: Chronic Initialized on 12/06/18 16:00 - END OF NOTE
== END 2018-12-07 10:00 | disposition home or self-care (01) | DRG 772 ==
LOC: YASAS 11:30 → Y5N 18:33
PROVIDERS: ADMIT Neuromusculoskeletal Medicine & OMM; ATTEND Neuromusculoskeletal Medicine & OMM
PROC: HZ42ZZZ Group Counseling for Substance Abuse Treatment, Cognitive-Behavioral (ICD-10-PCS; principal; 2018-11-23)
DX: F11.20 Opioid dependence, uncomplicated (principal); F10.20 Alcohol dependence, uncomplicated; F14.20 Cocaine dependence, uncomplicated; F17.210 Nicotine dependence, cigarettes, uncomplicated; F19.280 Other psychoactive substance dependence with psychoactive substance-induced anxiety disorder; F19.282 Other psychoactive substance dependence with psychoactive substance-induced sleep disorder
CPT/HCPCS: 81003; 82962

== ENCOUNTER 2022-01-23 10:54 | Inpatient (IN) | payer OTHER ==
[2022-01-23 11:25] VITALS: BMI 27.4
[2022-01-23] MEDS ORDERED: IBUPROFEN 400 MG TABLET (FP) PO PRN (14:39)
[2022-01-23] MEDS ORDERED: NALOXONE HCL (KLOXXADO) 8 MG SPRAY NS PRN (14:39)
[2022-01-23] MEDS ORDERED: NICOTINE 10 MG CARTRIDGE (INHALER) IH PRN (14:39)
[2022-01-23] MEDS ORDERED: MAGNESIUM CITRATE 300 ML BOTTLE PO PRN (14:39)
[2022-01-23] MEDS ORDERED: BENZOCAINE/MENTHOL (CHLORASEPTIC ) LOZENGE MM PRN (14:39)
[2022-01-23] MEDS ORDERED: DICYCLOMINE HCL 10 MG CAPSULE PO PRN (14:39)
[2022-01-23] MEDS ORDERED: LOPERAMIDE HCL 2 MG CAPSULE PO PRN (14:39)
[2022-01-23] MEDS ORDERED: NICOTINE POLACRILEX 4 MG GUM BUC PRN (14:39)
[2022-01-23] MEDS ORDERED: ACETAMINOPHEN 325 MG TABLET (FP) PO PRN ×2 (14:39)
[2022-01-23] MEDS ORDERED: MAGNESIUM HYDROX 2400MG/30ML ORAL SUSPENSION 30 ML CUP PO PRN (14:39)
[2022-01-23] MEDS ORDERED: IBUPROFEN 600 MG TABLET (FP) PO PRN (14:39)
[2022-01-23] MEDS ORDERED: ONDANSETRON *ODT* 4 MG TABLET SL PRN (14:39)
[2022-01-23] MEDS ORDERED: methaDONE HCL 10 MG TABLET (FOR DETOX USE ONLY) PO ONE (15:00)
[2022-01-23] MEDS: NICOTINE 14 MG/24 HOURS TOPICAL PATCH TD SCH (15:25)
[2022-01-23] MEDS: hydrOXYzine PAMOATE 25 MG CAPSULE (FP) PO SCH ×2 (17:47→22:29)
[2022-01-23] MEDS: METHOCARBAMOL 500 MG TABLET PO PRN (17:48)
[2022-01-23] MEDS: MAG HYDROX/AL HYDROX/SIMETH 30 ML UNIT-DOSE CUP PO PRN (17:48)
[2022-01-23] MEDS: MELATONIN 5 MG TABLETS PO SCH (22:29)
[2022-01-23] MEDS: THIAMINE HCL 100 MG TABLET (FP) PO SCH (22:29)
[2022-01-24] MEDS: hydrOXYzine PAMOATE 25 MG CAPSULE (FP) PO SCH ×5 (05:41→21:41)
[2022-01-24] MEDS: cloNIDine HCL 0.1 MG TABLET PO PRN ×2 (05:42→18:15)
[2022-01-24] MEDS: PRENATAL VITAMINS W/ FOLIC ACID TABLET (FP) PO SCH (10:26)
[2022-01-24] MEDS: NICOTINE 14 MG/24 HOURS TOPICAL PATCH TD SCH (10:28)
[2022-01-24 11:34] LABS: HEMOGLOBIN 14.3 GM/dL (11.7-16.9); MCH 30.3 pg (25.7-33.7); MCHC 33.2 g/dl (32.0-35.9); MEAN CELL VOLUME 91.4 fl (80-96); MEAN PLT VOLUME 10.8 fl (7.5-11.1); PLATELET COUNT 183 10^3/uL (134-434); RBC 4.71 M/mm3 (4.00-5.60); RDW 14.3 % (11.9-15.9); WHITE BLOOD COUNT 8.1 K/mm3 (4.0-10.0)
[2022-01-24 11:40] LABS: ALBUMIN 3.5 g/dl (3.4-5.0); BLOOD UREA NITROGEN 9.6 mg/dL (7-18); CALCIUM 9.6 mg/dL (8.5-10.1)
[2022-01-24 11:43] LABS: CREATININE 1.1 mg/dL (0.55-1.3)
[2022-01-24 11:45] LABS: BILIRUBIN,TOTAL 0.4 mg/dL (0.2-1); TOT PROT 6.8 g/dl (6.4-8.2)
[2022-01-24] MEDS: METHOCARBAMOL 500 MG TABLET PO PRN (18:15)
[2022-01-24] MEDS: diazePAM 5 MG TABLET PO PRN ×2 (19:28→23:35)
[2022-01-24] MEDS: MAG HYDROX/AL HYDROX/SIMETH 30 ML UNIT-DOSE CUP PO PRN (21:41)
[2022-01-24] MEDS: THIAMINE HCL 100 MG TABLET (FP) PO SCH (21:42)
[2022-01-24] MEDS: MELATONIN 5 MG TABLETS PO SCH (21:42)
[2022-01-25] MEDS: diazePAM 5 MG TABLET PO PRN ×5 (04:10→21:55)
[2022-01-25] MEDS: hydrOXYzine PAMOATE 25 MG CAPSULE (FP) PO SCH ×5 (05:45→21:55)
[2022-01-25] MEDS ORDERED: methaDONE HCL 10 MG TABLET (FOR DETOX USE ONLY) PO ONE (10:00)
[2022-01-25] MEDS: METHOCARBAMOL 500 MG TABLET PO PRN (10:19)
[2022-01-25] MEDS: PRENATAL VITAMINS W/ FOLIC ACID TABLET (FP) PO SCH (10:20)
[2022-01-25] MEDS: NICOTINE 14 MG/24 HOURS TOPICAL PATCH TD SCH (10:20)
[2022-01-25] MEDS: cloNIDine HCL 0.1 MG TABLET PO PRN ×2 (17:20→21:55)
[2022-01-25] MEDS: MAG HYDROX/AL HYDROX/SIMETH 30 ML UNIT-DOSE CUP PO PRN (17:51)
[2022-01-25] MEDS: THIAMINE HCL 100 MG TABLET (FP) PO SCH (21:55)
[2022-01-25] MEDS: MELATONIN 5 MG TABLETS PO SCH (21:55)
[2022-01-26] MEDS: diazePAM 5 MG TABLET PO PRN ×5 (02:20→22:09)
[2022-01-26] MEDS: MAG HYDROX/AL HYDROX/SIMETH 30 ML UNIT-DOSE CUP PO PRN ×3 (02:21→20:45)
[2022-01-26] MEDS: hydrOXYzine PAMOATE 25 MG CAPSULE (FP) PO SCH ×5 (06:33→22:09)
[2022-01-26] MEDS: METHOCARBAMOL 500 MG TABLET PO PRN (10:07)
[2022-01-26] MEDS: NICOTINE 14 MG/24 HOURS TOPICAL PATCH TD SCH (10:09)
[2022-01-26] MEDS: PRENATAL VITAMINS W/ FOLIC ACID TABLET (FP) PO SCH (10:10)
[2022-01-26] MEDS: BISMUTH SUBSALICYLATE 524 MG/30 ML PO PRN ×2 (17:29→22:11)
[2022-01-26] MEDS: MELATONIN 5 MG TABLETS PO SCH (22:09)
[2022-01-26] MEDS: THIAMINE HCL 100 MG TABLET (FP) PO SCH (22:09)
[2022-01-27] MEDS: diazePAM 5 MG TABLET PO PRN ×4 (02:12→15:43)
[2022-01-27] MEDS: MAG HYDROX/AL HYDROX/SIMETH 30 ML UNIT-DOSE CUP PO PRN ×3 (03:15→22:18)
[2022-01-27] MEDS: hydrOXYzine PAMOATE 25 MG CAPSULE (FP) PO SCH ×5 (08:22→22:16)
[2022-01-27] MEDS ORDERED: methaDONE HCL 10 MG TABLET (FOR DETOX USE ONLY) PO ONE (10:00)
[2022-01-27] MEDS: PRENATAL VITAMINS W/ FOLIC ACID TABLET (FP) PO SCH (10:08)
[2022-01-27] MEDS: NICOTINE 14 MG/24 HOURS TOPICAL PATCH TD SCH (10:08)
[2022-01-27] MEDS: METHOCARBAMOL 500 MG TABLET PO PRN ×2 (10:09→22:17)
[2022-01-27 21:24] VITALS: RESP 18
[2022-01-27] MEDS: MELATONIN 5 MG TABLETS PO SCH (22:16)
[2022-01-27] MEDS: THIAMINE HCL 100 MG TABLET (FP) PO SCH (22:16)
[2022-01-28] MEDS: hydrOXYzine PAMOATE 25 MG CAPSULE (FP) PO SCH ×2 (05:19→09:25)
[2022-01-28] MEDS: MAG HYDROX/AL HYDROX/SIMETH 30 ML UNIT-DOSE CUP PO PRN (07:43)
[2022-01-28 09:11] VITALS: BP 137/76; PULSE 87; TEMP 97.5
[2022-01-28] MEDS: NICOTINE 14 MG/24 HOURS TOPICAL PATCH TD SCH (09:26)
[2022-01-28] MEDS: PRENATAL VITAMINS W/ FOLIC ACID TABLET (FP) PO SCH (09:26)
== END 2022-01-28 09:27 | disposition home or self-care (01) | DRG 773 ==
LOC: YASAS 10:54 → Y3N 14:29
PROVIDERS: ADMIT Allergy & Immunology; ATTEND Family Medicine Addiction Medicine
PROC: HZ2ZZZZ Detoxification Services for Substance Abuse Treatment (ICD-10-PCS; principal; 2022-01-23)
DX: F11.23 Opioid dependence with withdrawal (principal); F14.20 Cocaine dependence, uncomplicated; F17.210 Nicotine dependence, cigarettes, uncomplicated; K21.9 Gastro-esophageal reflux disease without esophagitis; M54.50 Low back pain, unspecified; G89.29 Other chronic pain; R73.03 Prediabetes
CPT/HCPCS: 36415; 80053; 82962; 85027; 86780; C9803-CS; U0003; U0005